=== PATIENT | female | born 1960 | race Caucasian/White ===

== ENCOUNTER 2017-01-17 05:23 | Inpatient (IN) ==
--- OUTSIDE RECORDS SUMMARY | 2017-01-17 05:28 | External Medical Summary | CCD ---
:1960 Author Name MECHELLE LOVELL Address [address], [place] [id number] Care Team Providers Name Role Phone RUDDY DUVAL Attending Physician Unavailable Vital Signs Unknown or Not Available. Allergies Unknown or Not Available. Procedures Unknown or Not Available. History of Immunizations Unknown or Not Available. Problems Unknown or Not Available. Results Unknown or Not Available. Active Medications Unknown or Not Available. Medications Administered During Visit Unknown or Not Available. Encounters Encounter Diagnosis Diagnosis Code Start Date JOINT PAIN-SHLDER 01937 03/11/2015 Social History Smoking Status Code Start Date End Date Never smoker [id number] Patient Decision Aids Unknown or Not Available. Discharge Instructions You were admitted to [facility] on 03/11/2015 with a principal diagnosis of JOINT PAIN-SHLDER. You were discharged from [facility] on 03/11/2015. Should you have any questions prior to discharge, please contact a member of your healthcare team. If you have left the hospital and have any questions, please contact your primary care physician. Chief Complaint and Reason For Visit Chief Complaint Date of Onset RT SHOULDER XRAY Function Status Unknown or Not Available. Plan of Care Unknown or Not Available. Referral/Transition of Care Unknown or Not Available.
--- OUTSIDE RECORDS SUMMARY | 2017-01-17 05:28 | External Medical Summary | Referral Summary ---
:1960 Author Organization [facility] Address [address] [place] [address] [place] [address] Care Team Providers Name Role Phone Jason Barlow Primary Care Physician Encounter VC Date(s): 08/09/16 - 08/09/16 [facility] [place] [phone] [place] Discharge Diagnosis: RLQ abdominal pain Discharge Diagnosis: Well woman exam Discharge Diagnosis: Hypothyroid Discharge Diagnosis: Atypical mole Discharge Disposition: 01-Home or Self Care Attending Physician: Jason Barlow MD Admitting Physician: Jason Barlow MD Vital Signs Most recent to oldest [Reference Range]: 1 Temperature Tympanic [36.6-38.1 degC] 35.9 degC *LOW* (08/09/16 8:12 AM) Peripheral Pulse Rate [60-100 bpm] 68 bpm (08/09/16 8:12 AM) Respiratory Rate [14-20 br/min] 18 br/min (08/09/16 8:12 AM) Blood Pressure [90-140/60-90 mmHg] 132/96mmHg (08/09/16 8:12 AM) Problem List Condition Effective Dates Status Health Status Informant Asthma(Confirmed) Active Goiter(Confirmed) Active Thyroid disease(Confirmed) Active Varicella zoster(Confirmed) Active Allergies, Adverse Reactions, Alerts No Known Medication Allergies Medications Afrin Nasal Sinus sprays, Nasal, BID, Nasal Congestion, 0 Refill(s) Start Date: 12/19/13 Status: Orderedcalcitriol 0.25 mcg oral capsule See Instructions, TAKE 2 CAPSULES BY MOUTH 2 TIMES DAILY, # 120 caps, 5 Refill(s ), eRx: [facility], TAKE 2 CAPSULES BY MOUTH 2 TIMES DAILY Start Date: 01/08/16 Status: OrderedCalcium 600+D tabs, Oral, TID, 0 Refill(s) Start Date: 12/19/13 Status: Orderedcyclobenzaprine 10 mg oral tablet 1 tabs, Oral, TID, as needed for spasm, # 30 tabs, 1 Refill(s), Pharmacy: [facility], 1 tabs Oral TID,PRN:as needed for spasm Start Date: 08/27/14 Status: Orderedibuprofen 200 mg oral tablet 2 tabs, Oral, q4hr, as needed for pain, # 120 tabs, 0 Refill(s) Start Date: 12/19/13 Status: Orderedomeprazole 20 mg oral delayed release capsule See Instructions, TAKE 1 CAPSULE BY MOUTH DAILY, # 30 caps, 4 Refill(s), eRx: [facility], TAKE 1 CAPSULE BY MOUTH DAILY Start Date: 04/18/14 Status: OrderedSynthroid 150 mcg (0.15 mg) oral tablet See Instructions, TAKE 1 TABLET BY MOUTH DAILY, # 60 tabs, 11 Refill(s), M[place], eRx: [facility], TAKE 1 TABLET BY MOUTH DAILY Start Date: 04/11/16 Status: Ordered Results Hematology Most recent to oldest [Reference Range]: 1 WBC [4.8-10.8 10*3/uL] 7.0 10*3/uL (08/09/16 8:55 AM) RBC [4.00-5.20] 4.79 (08/09/16 8:55 AM) Hgb [12.0-16.0 gm/dL] 13.9 gm/dL (08/09/16 8:55 AM) Hct [37.0-47.0 %] 43.7 % (08/09/16 8:55 AM) MCV [82.0-99.0 fL] 91.2 fL (08/09/16 8:55 AM) MCH [27.0-32.0 pg] 29.0 pg (08/09/16 8:55 AM) MCHC [32.0-36.0 gm/dL] 31.8 gm/dL *LOW* (08/09/16 8:55 AM) RDW [11.5-14.5 %] 13.3 % (08/09/16 8:55 AM) Platelet [150-400 10*3/uL] 249 10*3/uL (1/31/17 8:55 AM) MPV [8.8-14.8 fL] 11.0 fL (08/09/16 8:55 AM) Immature Granulocytes [0.0-1.0 %] 0.1 % (08/09/16 8:55 AM) Neutrophils [51-75 %] 66 % (08/09/16 8:55 AM) Lymphocytes [20-46 %] 24 % (08/09/16 8:55 AM) Monocytes [4-11 %] 6 % (08/09/16 8:55 AM) Eosinophils [0-4 %] 4 % (08/09/16 8:55 AM) Basophils [0-2 %] 0 % (08/09/16 8:55 AM) Neutro Absolute [1.90-7.00] 4.59 (08/09/16 8:55 AM) Lymph Absolute [0.80-3.30] 1.65 (08/09/16 8:55 AM) [place] Absolute [0.30-1.00] 0.43 (08/09/16 8:55 AM) Eos Absolute [0.00-0.50] 0.24 (08/09/16 8:55 AM) Baso Absolute [0.00-0.20] 0.03 (08/09/16 8:55 AM) Chemistry Most recent to oldest [Reference Range]: 1 Sodium Lvl [135-144 mEq/L] 141 mEq/L (08/09/16 8:55 AM) Potassium Lvl [3.5-5.2 mEq/L] 4.3 mEq/L (08/09/16 8:55 AM) Chloride [99-111 mEq/L] 105 mEq/L (08/09/16 8:55 AM) CO2 [22-31 mEq/L] 24 mEq/L (08/09/16 8:55 AM) AGAP [3-20] 12 (08/09/16 8:55 AM) BUN [10-20 mg/dL] 18 mg/dL (08/09/16 8:55 AM) Glucose Lvl [70-99 mg/dL] 97 mg/dL (08/09/16 8:55 AM) Creatinine Lvl [0.57-1.11 mg/dL] 0.82 mg/dL (08/09/16 8:55 AM) eGFR [>60 mL/min] >60 mL/min1 (08/09/16 8:55 AM) Calcium Lvl [8.9-10.5 mg/dL] 8.6 mg/dL *LOW* (08/09/16 8:55 AM) Albumin Lvl [3.5-5.0 gm/dL] 4.5 gm/dL (08/09/16 8:55 AM) Total Protein [6.1-7.7 gm/dL] 7.9 gm/dL *HI* (08/09/16 8:55 AM) Globulin [1.8-4.0 gm/dL] 3.4 gm/dL (08/09/16 8:55 AM) ALT [0-55 U/L] 23 U/L (08/09/16 8:55 AM) AST [5-34 U/L] 19 U/L (08/09/16 8:55 AM) Alk Phos [40-150 U/L] 75 U/L (08/09/16 8:55 AM) Bili Total [0.2-1.2 mg/dL] 0.6 mg/dL (08/09/16 8:55 AM) Chol [0-199 mg/dL] 241 mg/dL *HI* (08/09/16 8:55 AM) Trig [0-149 mg/dL] 190 mg/dL *HI* (08/09/16 8:55 AM) HDL [40-84 mg/dL] 44 mg/dL (08/09/16 8:55 AM) LDL [0-130 mg/dL] 159 mg/dL *HI* (08/09/16 8:55 AM) VLDL Cholesterol [0-28 mg/dL] 38 mg/dL *HI* (08/09/16 8:55 AM) Cardiac Risk [0.0-5.0] 5.5 *HI* (08/09/16 8:55 AM) 1Result Comment: Multiply eGFR results by 1.21 for race. Immunizations Given and Recorded Vaccine Date Status Refusal Reason tetanus/diphth/pertuss (Tdap) adult/adol 08/27/14 Given influenza virus vaccine, live 06/23/12 Given Procedures Procedure Date Related Diagnosis Body Site Collection of venous blood by venipuncture 08/09/16 section Thyroidectomy Social History Social History Type Response Smoking Status Never smoker Assessment and Plan Extracted from: Title:Office Visit Note Author:Jason Barlow MD Date:08/09/16 Assessment/Plan 1.Well woman exam Overall she appears healthy and doing well. I've recommended screening lab and that'll be done today. I recommended screening colonoscopy and paperwork was given for fast track. She is up-t o-date on vaccinations last tetanus was approximately 8 years ago. Pap smear obtained today. [facility] given for [facility] for scheduling mammogram. Yearly follow-up encouraged. Ordered: Comprehensive Metabolic Panel Lipid Panel Periodic Comp Preventive Med 40 to 64 years Est 00145 2.RLQ abdominal pain She did have some mild fullness but no real tenderness in the right lower quadrant onpelvic exam. I've recommended a pelvic sonogram for further evaluation. Ordered: CBC w/ Differential Comprehensive Metabolic Panel Periodic Comp Preventive Med 40 to 64 years Est 70615 US Pelvis Non-OB Complete 3.Hypothyroid Continue current dose of levothyroxine without change. Ordered: Comprehensive Metabolic Panel Lipid Panel Periodic Comp Preventive Med 40 to 64 years Est 97294 4.Atypical mole I think this most likely benign but since it's gotten darker of recommended a simple shave biopsy and will do that in the next few weeks some time
--- OUTSIDE RECORDS SUMMARY | 2017-01-17 05:28 | External Medical Summary | Continuity of Care Document ---
:1960 Author Organization [facility] Allergies Active Description Code Type Severity Reaction Onset Reported/ Identified Relationship Clinical to Patient Status Yes No Known 85857 3 N/A N/A Drug 0 Allergies Medications Problems Date Dx Coded Attending Type Code Diagnosis Diagnosed By 04/10/2015 QUINTEN JOHNSON [id number] PRIMARY OSTEOARTHRITIS, RIGHT SHOULDER 04/10/2015 QUINTEN JOHNSON [id number] PAIN IN RIGHT SHOULDER 04/10/2015 QUINTEN JOHNSON [id number] STRAIN OF MUSCLE(S) AND TENDON(S) OF THE ROTATOR CUFF OF RIGHT SHOULDER, INITIAL ENCOUNTER 04/10/2015 QUINTEN JOHNSON [id number] EXPOSURE TO OTHER SPECIFIED FACTORS, INITIAL ENCOUNTER 04/10/2015 QUINTEN JOHNSON Y[address] OF OCCURRENCE OF THE EXTERNAL CAUSE 04/10/2015 QUINTEN JOHNSON Y939 ACTIVITY, UNSPECIFIED Procedures Results Encounters ACCT No. Visit Discharge Status Pt. Type Provider Facility Loc./Unit Complaint Date/Time [id number] 04/10/2015 04/10/2015 DIS Outpatient Angel JOHNSON 12:30:00 12:30:00 [facility]
--- OUTSIDE RECORDS SUMMARY | 2017-01-17 05:28 | External Medical Summary | CCD ---
:1960 Author Name QUINTEN SWARTZ Address [address], [place] [id number] Care Team Providers Name Role Phone CRISTIANO ORTEGA Attending Physician Unavailable Vital Signs Unknown or Not Available. Allergies Unknown or Not Available. Procedures Unknown or Not Available. History of Immunizations Unknown or Not Available. Problems Unknown or Not Available. Results Unknown or Not Available. Active Medications Unknown or Not Available. Medications Administered During Visit Unknown or Not Available. Encounters Unknown or Not Available. Social History Smoking Status Code Start Date End Date Never smoker [id number] Patient Decision Aids Unknown or Not Available. Discharge Instructions You were admitted to [facility] on 04/24/2015. You were discharged from [facility] on 04/24/2015. Should you have any questions prior to discharge, please contact a member of your healthcare team. If you have left the hospital and have any questions, please contact your primary care physician. Chief Complaint and Reason For Visit Unknown or Not Available. Function Status Unknown or Not Available. Plan of Care Unknown or Not Available. Referral/Transition of Care Unknown or Not Available.
[2017-01-17 05:40] VITALS: BMI 31.9
[2017-01-17] MEDS: LR 1,000 ML IV SCH ×4 (06:15→22:42)
[2017-01-17] MEDS ORDERED: BUPIVACAINE 0.25% (2.5mg/ml) PF 30ml INJECTION ONE (06:20)
--- NOTE | 2017-01-17 07:27 | Anesthesia Preoperative Report ---
Anesthesia Preoperative Record - Date and Time Date: 01/17/17 Preoperative Diagnosis: Lap lt oopher/Lap jac salp/hysteroscopy/D&C Allergies/Adverse Reactions: Allergies Allergy/AdvReac Type Severity Reaction Status Date / Time No Known Allergies Allergy Verified 01/17/17 05:55 - Vital Signs Vital Signs: Temperature 97.9 F 01/17/17 05:31 Pulse Rate 58 L 01/17/17 05:31 Respiratory Rate 16 01/17/17 05:31 Blood Pressure 190/77 H 01/17/17 05:31 Pulse Oximetry 98 01/17/17 05:31 Oxygen Delivery Method Room Air Height and Weight: Height 1.6 m Weight 81.8 kg Body Mass Index 31.9 - Medications Inpatient Medications: Current Medications Lactated Ringer's (Lactated Ringers) 1,000 mls @ 125 mls/hr IV .Q8H SIMON Last Admin: 01/17/17 06:15 Dose: 125 mls/hr Lidocaine HCl (Xylocaine-Mpf 1% Vial) 1 mg ID O ONE Stop: 01/17/17 14:45 Last Admin: 01/17/17 06:16 Dose: 1 mg Home Medications: Home Medications Medication Instructions Recorded Confirmed Type Atorvastatin Calcium 10 mg PO DAILY 01/16/17 01/17/17 History Calcium 600 + D [Caltrate + D] 1 tab PO DAILY 01/16/17 01/17/17 History Hydrocodone/Acetaminophen 1 tab PO Q4-6HPRN PRN 01/16/17 01/17/17 History [Hydrocodon-Acetaminophen 5-325] Levothyroxine Tab [Synthroid] 150 mcg PO ACB 01/16/17 01/17/17 History Calcitriol [Rocaltrol] 2 cap PO DAILY 01/17/17 01/17/17 History - Surgical History Endocrine Surgery/Treatments: Reports: Parathyroid Surgery, Thyroidectomy Reproductive Surgery/Treatment: Reports: Section, Other (ectopic ; pelvic mesh X2) - Social History Smoking Status: Never smoker Hx Chewing Tobacco Use: No Second Hand Exposure: No Time spent discussing smoking cessation with patient: 3 to 10 minutes Substance Use Type: does not use Alcohol Intake Frequency: holidays/special occasions only - Pertinent Findings EKG Rhythm: Normal Sinus Rhythm - Physical Exam Respiratory Exam: Present: lungs clear, bilateral breath sounds equal Cardiovascular Exam: Present: regular rate and rhythm - Airway Assessment Mallampati Score: I TMD: 3 Fingerbreadths Neck Extension: good Overall Assessment: no airway concerns - ASA ASA Score: 1 - Plan Anesthesia: General Inhalation Gases - Discussion Discussion: Discussed risks/options/alternatives of anesthesia and questions answered. Patient consents. Nursing pain assessment noted. Present for Discussion: family member Attestation Statement: Prior to the delivery of any anesthetic medication, I examined the patient, developed the plan, obtained the patient's consent and discussed the risk and benefits of the procedure with the patient/guardian. - Additional Information Seen by Anesthesia: Yes
[2017-01-17] MEDS ORDERED: FentaNYL 250 MCG/5 ML INJECTION ONE ×2 (07:32→10:04)
[2017-01-17] MEDS ORDERED: ROCURONIUM 50 MG/5 ML INJECTION IVP ONE ×3 (07:33→11:05)
[2017-01-17] MEDS ORDERED: PROPOFOL 20 ML ONE (07:33)
[2017-01-17] MEDS ORDERED: LIDOCAINE 2% (100mg/5mL) PF 5ml vl ONE (07:33)
[2017-01-17] MEDS ORDERED: BUPIVACAINE 0.25% (2.5mg/ml) PF 30ml INJECTION ID ONE (07:56)
[2017-01-17] MEDS ORDERED: ONDANSETRON 4 MG/2 ML INJECTION ONE (08:03)
[2017-01-17] MEDS ORDERED: FentaNYL 100 MCG/2 ML INJECTION ONE (08:09)
[2017-01-17] MEDS ORDERED: METOPROLOL 5mg/5ml INJECTION IVP ONE (08:19)
[2017-01-17] MEDS ORDERED: DEXAMETHASONE 4 MG/ML INJECTION ONE (08:21)
[2017-01-17] MEDS ORDERED: HYDRALAZINE 20 MG/ML INJECTION ONE (08:35)
[2017-01-17] MEDS ORDERED: SALINE FLUSH 10ml SYRINGE ONE ×2 (08:37→09:35)
[2017-01-17] MEDS ORDERED: CEFAZOLIN 1 G INJECTION ONE (08:37)
[2017-01-17] MEDS ORDERED: ERTAPENEM 1 G in NS 100 ML IV ONE (09:07)
[2017-01-17] MEDS ORDERED: PHENYLEPHRINE INJ 10 MG/ML VIAL IV ONE (09:35)
[2017-01-17] MEDS ORDERED: SUGAMMADEX 200mg/2ml INJECTION IVP ONE (12:16)
[2017-01-17] MEDS ORDERED: PROCHLORPERAZINE 10 MG/2 ML INJECTION IVP PRN (12:41)
[2017-01-17] MEDS ORDERED: METOCLOPRAMIDE 10mg/2ml INJECTION IVP PRN ×2 (12:41→12:55)
[2017-01-17] MEDS ORDERED: HYDROMORPHONE PCA 30mg/30ml VIAL IV PRN (12:41)
--- NOTE | 2017-01-17 12:51 | OB/GYN Procedure Note ---
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 Guzman Anesthesia Provider: Santos Davidson MD Anesthesia Type: general Complications: Unavoidable Colostomy Estimated Blood Loss:: 200 Findings: Dense anterior abdominal wall adhesions and pelvic adhesions Description of Procedure: See dictation
[2017-01-17] MEDS: HYDROMORPHONE 2 MG/ML INJECTION IVP PRN ×2 (12:57→13:21)
--- NOTE | 2017-01-17 13:16 | General Surgery Procedure Note ---
Date of Procedure: 01/17/17 Surgeon: Megan President Of [place]: Other (Dr. Galeana) Anesthesia: General Inhalation Gases ASA Score: 1 Postoperative Diagnosis: Incidental colotomy secondary to adhesiolysis Procedure: Exploratory laparotomy with segmental sigmoid colon resection
--- NOTE | 2017-01-17 14:38 | Anesthesia Postoperative Note ---
- Status Patient Participated in Evaluation: Patient Participated in Person Vital Signs: Temperature 99.1 F 01/17/17 13:44 Pulse Rate 85 01/17/17 13:40 Respiratory Rate 21 01/17/17 13:40 Blood Pressure 133/64 01/17/17 13:40 Pulse Oximetry 95 01/17/17 13:40 Oxygen Delivery Method Room Air Oxygen Flow Rate 6 Respiratory Function: Airway Patent EKG Rhythm: Normal Sinus Rhythm Mental Status: Alert and Oriented Hydration: IV Infusing Complications During Recover: None Apparent Post Anesthesia Care Notes: doing well after additional analgesic and antiemetic. - Follow-Up Instructions Instructions: Per Surgeon
[2017-01-17] MEDS ORDERED: LIDOCAINE 1% (10mg/ml) 2mL INJ PF SDV ID ONE (14:44)
--- NOTE | 2017-01-17 17:36 | OB/GYN Progress Note ---
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 CBC in am, continue clear diet x 48 hours. Discussed case and complication of unavoidable Colotomy with patient. Discussed surgical findings and proceedings. Discussed post operative care. Questions elicited and answered.
[2017-01-17] MEDS ORDERED: ACETAMINOPHEN 325 MG TABLET PO PRN (23:01)
--- NOTE | 2017-01-18 06:19 | OB/GYN Progress Note ---
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 Use of IS. Rested well, no concerns Pt reports feeling much better from last evening, rested well. - Objective Vital Signs: Vital Signs Temp 99.0 F 01/18/17 04:36 Pulse 80 01/18/17 04:36 Resp 16 01/18/17 05:59 BP 126/67 01/18/17 04:36 Pulse Ox 95 01/18/17 04:36 Urine Output: good General: alert and oriented Cardiovascular: regular rate,rhythm Respiratory: non-labored Respiratory Auscultation: clear bilaterally Abdomen: non-tender, soft, distended Abdomen: Mild distention Incision: Dressing intact, appears dry Extremities: non-tender Laboratory Results: 01/18/17 04:07 Labs: Abnormal lab results 01/17/17 01/18/17 Range/Units 16:38 04:07 WBC 18.6 H 18.2 H (4.5-11.0) T/MM3 RBC 3.92 L (4.00-5.20) M/MM3 Hgb 11.8 L D (12-16) GM/DL Hct 35.8 L D (36-46) % Neutrophils % (Manual) 87.0 H (33-66) % Lymphocytes % (Manual) 6.0 L (23-45) % Neutrophils # (Manual) 15.8 H (1.8-7.7) T/MM3 - Assessment (1) Post-operative state Status: Acute - Plan Plan: continue Routine Care Plan Comments: 56 y/o F S/P Dx Laparoscopy converted to laparotomy secondary to unavoidable colotmy, Ovarian cyst aspiration, Bowels resection with reansastomosis, Hysteroscopy D&C Polypectomy. POD# - RPOC, encourage ambulation, Continue Clear Diet until at least 48 hours, Chadwick out today with ambulation -will guard against Illeus with ambulation, Chewing gum, and Clear diet - Pain control with GREASE AND TALLOW PUMPER continue until diet is advanced to softs then will attempt PO pain management - General surgery consulted Intraoperative, appreciate help Post operative fever- currently AF - resolved with One dose Tylenol, continue Tylenol PRN fever -IS at bed side - Second Dose IV ABX today Ivanz -Repeat CBC this am CBC improved, HGB stable Plan for today ambulation, Chadwick out, Pain control discussed with pt
[2017-01-18] MEDS: LR 1,000 ML IV SCH ×3 (06:44→23:58)
--- NOTE | 2017-01-18 08:01 | Operative Note ---
DATE OF SERVICE 01/17/2017 PREOPERATIVE DIAGNOSES 1. Left ovarian cyst. 2. Thickened endometrium. POSTOPERATIVE DIAGNOSES 1. Left ovarian cyst. 2. Endometrial polyp. 3. Abdominal and pelvic adhesions. 4. Unavoidable colotomy. Please see Dr. Guzman's dictation for remainder of postoperative diagnosis and procedures. PROCEDURE 1. Diagnostic laparoscopy. 2. Lysis of adhesions. 3. Unavoidable colotomy secondary to lysis of adhesions. 4. Hysteroscopy, D&C, endometrial polypectomy. SURGEON Heraclio Galeana, DO COMPLICATIONS Colotomy secondary to lysis of adhesions. ANESTHESIA PROVIDER Santos Suresh MD ANESTHESIA TYPE General. ESTIMATED BLOOD LOSS 200 ml FINDINGS Anterior abdominal wall adhesions along with pelvic adhesions. Normal- appearing uterus. Clear fluid aspirated from suspected ovarian cyst INDICATIONS FOR PROCEDURE This is a 56-year-old postmenopausal female who presented to the office with history of right lower quadrant pain and noted to have a left simple-appearing ovarian cyst greater than 5 cm with CA 125 within normal limits and an endometrial stripe greater than 4 mm on transvaginal sono. Discussion with patient in office of expectant versus surgical management for ovarian cyst in a postmenopausal patient with a simple-appearing cyst was discussed. Recommendations at that for diagnostic laparoscopy, oophorectomy, bilateral salpingectomy and hysteroscopy, D&C, possible polypectomy for a thickened endometrium was discussed along with risk, benefits and alternatives to procedure. Questions were elicited and answered in the office and patient agreed with surgical management. DESCRIPTION OF PROCEDURE The patient was taken to the operating room where general endotracheal anesthesia was obtained without difficulty. Bimanual exam of the pelvis revealed an anteverted, limited mobility uterus that was of normal size and shape with what appeared to be a pelvis mass in the posterior cul-de-sac on the patient's left side. A heavy-weighted speculum was placed in the posterior vagina and the Beyer was used to retract the anterior vagina and the cervix was visualized and grasped with a single-tooth tenaculum. The cervix and uterus was then sounded to 7 cm and the cervix was dilated with the Sharp dilator. The ClearView uterine manipulator was then inserted through the cervix into the uterus and surgeon was re-gloved and attention was turned to the abdomen. A 5 mm vertical incision was made at the umbilicus and the Veress was introduced into the abdomen and the abdomen was inflated with CO2 to 15 mmHg without difficulty. A 5 mm port was then placed at the infraumbilical site and the camera was then introduced into the abdomen. At this time a brief inspection of the abdomen and pelvis was performed noting anterior abdominal wall adhesions. The uterus could not be elevated up out of the pelvis and visualized and a decision was made to place a 5 mm port in the left lower quadrant of the abdomen under direct visualization. A 5 mm incision was made with a scalpel and the port was inserted under direct visualization without difficulty. A Pean laparoscopic grasper and hot scissor were used with minimal cautery to remove the anterior abdominal wall adhesions that contained sigmoid colon and omentum. This was carried down until the anterior-superior aspect of the uterus could be visualized and at this time continued with sharp dissection , minimal cautery and blunt dissection in attempt to remove adhesions and gain access to the left ovary was performed. During this time the unavoidable colotomy was noted and general surgery was called for intraoperative consult. Please see Dr. Guzman's dictation regarding the remainder of the abdominal case to include the bowel resection and reanastomoses to repair the unavoidable colotomy. Adhesiolysis was continued to be performed and the left ovarian cyst without being able to visualize the ovary had ruptured. The cyst wall could be visualized and two biopsies of the cyst wall were taken and sent to pathology. Excellent hemostasis was noted. After the abdominal procedure, the case was performed. Hysteroscopy was then started. Attention was turned below where the weighted speculum was then placed in the posterior vagina and the Robinson retractor was used to visualize the cervix which was grasped with a single- tooth tenaculum. The anterior retractor was removed and the hysteroscope was inserted through the cervix into the uterus without difficulty. Visualization of both ostia were performed and a clear view of the entire uterine cavity was seen noting, on the left side, two small uterine polyps, and the remainder of the endometrium appeared atrophic and thin. The hysteroscope was removed from the uterine cervix and the Jonathan stone forceps were used to perform polypectomy without difficulty. This tissue was sent to pathology and sharp curette was performed with minimal tissue. The hysteroscope part of the procedure was then precluded. All instruments were removed from the vagina and excellent hemostasis was noted. The patient was then taken to recovery room in stable condition. ISHAAN
--- NOTE | 2017-01-18 08:59 | Operative Note ---
DATE OF OPERATION 01/17/2017 SURGEON Ellis Guzman MD CAFETERIA ASSOCIATE Heraclio Galeana, DO PREOPERATIVE DIAGNOSIS Enterotomy incidental to adhesiolysis. POSTOPERATIVE DIAGNOSES 1. Colotomy incidental to adhesiolysis. 2. Dense pelvic adhesions. PROCEDURE 1. Diagnostic laparoscopy. 2. Exploratory laparotomy. 3. Adhesiolysis within the pelvis. 4. Segmental sigmoid colon resection with [id number] functional end-to-end anastomosis. ANESTHESIA General ASA CLASS 1 INDICATIONS The patient is a 56-year-old female who was undergoing diagnostic laparoscopy by Dr. Galeana. I was called to the operating room when an enterotomy was noted based on spillage of stool within the left pelvis. FINDINGS There were dense pelvic adhesions to the posterior aspect of the uterus and also to the left ovary which did have a cyst with yellow serous fluid. The cyst had ruptured during dissection of the dense adhesiolysis. The sigmoid colon was very redundant with a lengthy segment of the sigmoid colon that reflected back on itself prior to entering the pelvis. There were interloop adhesions holding the sigmoid colon segments in close proximity to each other. There was a colotomy that encompassed approximately half the circumference of the bowel in the proximal aspect of the redundant portion of the sigmoid colon. This was about at the junction of the proximal third and middle third of the sigmoid colon. See Dr. Galeana's separate operative note for additional details. Greater than 120 minutes of adhesiolysis was performed to try to dissect out the anterior rectum and the sigmoid colon loops to perform adequate repair via sigmoid colon resection. DESCRIPTION OF PROCEDURE I was called to the operating room where operation was already under way. At the point of my entry, laparoscopic ports were in the infraumbilical, suprapubic , and left lower quadrant locations. With the laparoscope, Dr. Galeana showed me the stool which was outside of the GI tract in the left lower quadrant. I ordered a gram of Invanz to be given IV. I then scrubbed in to the case and inspected the area with the laparoscope. The colotomy could then be identified. However with the dense pelvic adhesions that were present on laparoscopy, it was felt that laparotomy would be required to adequately deal with the situation. With pneumoperitoneum still established, a lower midline incision was created with a 10 blade scalpel. Electrocautery was used to dissect down to the subcutaneous tissue. The fascia was divided over one of the plastic trocars in the infraumbilical position. A finger was then inserted and was used to continue the fascial incision down to just above the pubic symphysis. Some adhesiolysis was performed of the omentum to the anterior abdominal wall so that an Herson wound protector could be inserted. A Bookwalter retractor was also used for retraction. With the retraction in place , attention was turned to the area of the enterotomy. Stool was milked out of the colon both proximal and distal to the enterotomy. As additional stool was noticed during the case it was evacuated and passed off of the surgical field within laparotomy sponges. Once the area was identified, attention was turned to adhesiolysis to free up the remainder of the anterior portion of the sigmoid colon. Dissection was performed down into the pelvis and around the left ovarian cyst. Small opening was made in the wall of the cyst during the dissection. Areas that were away from the bowel were able to be cauterized with electrocautery. Significant blunt dissection was performed wherever possible but due to the dense nature of the adhesions, some sharp dissection with Metzenbaum scissors was required. When the distal sigmoid colon and proximal rectum had been dissected off of the posterior aspect of the uterus, Dr. Galeana performed a biopsy of the cyst wall. With the biopsy complete, I returned attention to adhesiolysis of the interloop adhesions of the sigmoid colon and its mesentery. This allowed straightening of the sigmoid colon. There were aspects of the mesentery which were adherent to each other over the top of the antimesenteric portion of the bowel in some locations. The bowel was able to be freed adequately. The redundant portion extended well beyond the anterior abdominal wall. It was felt that this configuration would make future endoscopies very difficult and that closure of the defect in a transverse fashion would risk narrowing the sigmoid colon leading to a potential stricture. Because of the redundant nature of the sigmoid colon, it was felt that the best solution would be a segmental sigmoid colon resection. A window was made in the mesentery just proximal to the colotomy. The bowel was divided with a linear cutting stapler. The site for distal transection was selected in the distal aspect of the middle third of the sigmoid colon to try to maintain adequate length as well as connect a segment that was free of mesenteric adhesions over the bowel. This allowed good position of the anastomosis in the left lower quadrant without tension. With this site selected , another window was made in the mesentery and the more distal resection margin was divided with a reload of the linear cutting stapler. At this point in time , the pelvis was inspected for hemostasis. There were some small areas of bleeding that were controlled with cautery. There was also some bleeding from the edge of the cyst biopsy site and this was controlled with an 0 Vicryl tie. The left ureter had been identified and was preserved throughout the pelvic dissection. This was again assured. Additional significant irrigation was utilized to irrigate out the pelvis and left lower quadrant because of the contamination. Once the fluid was evacuated and hemostasis was assured along the pelvic sidewall, the mesentery of the specimen was divided between clamps and controlled with 0 Vicryl ties. The specimen was then sent to pathology. Hemostasis was again assured and additional irrigation was performed. The area of anastomosis was wrapped with blue towels. The corners of the antimesenteric portions of the staple line were removed and one limb of the TLC75 stapler was placed in each bowel lumen. The bowel was then positioned so that the antimesenteric portions of the bowel were on opposite aspects and the mesentery was rotated out of the staple line. The stapler was then fired to create the common channel. The common enterotomy was then closed using a [id number] stapler. The four corners of the common enterotomy where the staple lines were, were grasped with Allis clamps to be sure that full-thickness closure of the common enterotomy was achieved. The anastomosis was palpated and was found to be adequate. Two 3-0 Vicryl sutures were used at the apex of the common staple line to prevent un-zippering of the staple lines at the crotch of the anastomosis. With the anastomosis complete, it was allowed to return within the abdomen. The greater omentum was pulled down as much as possible beneath the incision. The Bookwalter retractor was removed. With a clean glove, I removed the wound protector. The entire surgical team then changed gown and gloves and new sterile instruments were utilized for wound closure. The fascia was closed with a running #1 PDS suture. Hemostasis of the subcutaneous layer was assured. The skin was closed with nick but a buried 4-0 Monocryl stitch was used to close the incision site that was oriented transversely at the bottom aspect of the incision. One other portion at the upper incision that was poorly everted was also reapproximated with a buried interrupted 4-0 Monocryl stitch. The port in the left lower quadrant that had been removed was also closed with nick. Sterile dressings were applied. The patient tolerated this portion of the procedure well. She remained in the operating room for additional procedures by Dr. Galeana. ISHAAN
[2017-01-18] MEDS ORDERED: ERTAPENEM 1 G INJECTION IM SCH (09:00)
[2017-01-18] MEDS: ERTAPENEM 1 G in NS 100 ML IV SCH (09:34)
[2017-01-19] MEDS: LR 1,000 ML IV SCH ×2 (08:11→17:27)
[2017-01-19] MEDS: ERTAPENEM 1 G in NS 100 ML IV SCH (08:55)
--- NOTE | 2017-01-19 09:17 | OB/GYN Progress Note ---
YARN TESTER Post Op Progress Note - General POD:: POD2 Pain: contolled Voiding: voiding Nausea or Vomiting: No Ambulating: Yes Subjective Comments: Dis well over night, ambulating, chadwick out positive voids, pain controlled with HEATING AND COOLING TECHNICIAN, Using IS, Chewing Gum, slept well, Up to chair this am. No concerns per nursing. - Objective Vital Signs: Vital Signs Temp 98.2 F 01/19/17 07:34 Pulse 83 01/19/17 07:34 Resp 16 01/19/17 07:40 BP 131/70 01/19/17 07:34 Pulse Ox 96 01/19/17 07:34 Urine Output: good General: alert and oriented Cardiovascular: regular rate,rhythm Respiratory: non-labored Respiratory Auscultation: clear bilaterally Abdomen: non-tender, soft, distended Abdomen: Positive Bowel sounds q 4 quadrants, Mild distention soft Incision: Dressing C/D/I Extremities: non-tender Laboratory Results: 01/18/17 04:07 - Assessment (1) Post-operative state Status: Acute - Plan Plan: continue Routine Care Plan Comments: 56 y/o Female S/P DX laparoscopy, LENKA, converted to open secondary to colotomy, bowel resection and reanastomosis, Hysteroscopy D&C, Polypectomy Doing well, Pain controlled, Asad clear diet, AF. - RPOC -Will discuss with Gen surg and possible advance to Soft diet, if advance to soft diet will start PO pain management and Home meds. -Continue in pt manaagement
[2017-01-19] MEDS ORDERED: Oxycodone/Acetaminophen 5/325 1 TAB PO PRN (12:09)
[2017-01-19] MEDS: CALCITRIOL 0.25 MCG CAPSULE PO SCH ×3 (13:44→20:17)
[2017-01-19] MEDS: CALCIUM 600 + VIT D 400 TABLET PO SCH ×3 (13:44→20:18)
[2017-01-19] MEDS: LEVOTHYROXINE 150 MCG TABLET PO SCH (13:44)
[2017-01-19] MEDS: HYDROCODONE/APAP 5mg/325mg TABLET PO PRN ×2 (13:49→19:53)
[2017-01-19] MEDS: IBUPROFEN 800 MG TABLET PO PRN (16:38)
--- NOTE | 2017-01-19 18:46 | Progress Note ---
DATE OF VISIT 01/18/2017 REASON FOR VISIT Postoperative followup. SUBJECTIVE Mary is doing well. She has been ambulating some and has had her Li discontinued. She has some pain in her incision but overall feels like she is making appropriate progress. OBJECTIVE VITAL SIGNS: Temperature 99.5, other vital signs stable on room air. GENERAL: The patient is awake and alert, in no acute distress. She is seated upright in the chair. ABDOMEN: Soft, appropriately tender. Her dressing is clean, dry and intact. ASSESSMENT Postop day #1 status post exploratory laparotomy with segmental sigmoid colon resection - appropriate clinical progress. PLAN 1. Agree with continuation of clear liquid diet for now. 2. I encouraged her to increase her ambulation to help prevent postoperative ileus and muscle loss. 3. IV antibiotics can be stopped after this morning's dose. 4. I will continue to follow along with you. I will check her incision tomorrow. PATIENT EDUCATION I did explain the clinical situation to Mary and her who was present. I did explain that she would likely be in the hospital for three to five days while we await bowel function return. 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 She may need to go back half-time initially when she is feeling up to it. I did explain that we would slowly advance her diet and monitor for evidence of anastomotic leak or abscess formation by watching for fever, leukocytosis, or increasing pain rather than decreasing pain. Their questions were answered to their satisfaction. ISHAAN
--- NOTE | 2017-01-19 19:08 | Progress Note ---
DATE OF VISIT 01/19/2017 REASON FOR VISIT Postoperative followup. SUBJECTIVE Mary is doing well. She has been tolerating her oral intake without problems. She has been ambulating. Pain control has been adequate without the SENIOR RISK ANALYST and she prefers oral pain medicine. OBJECTIVE VITAL SIGNS: Temperature 97.9, vital signs stable. ABDOMEN: Her lower midline incision is healing well with minimal drainage and no evidence of infection. Her incision is intact as well as the small port site in the left lower quadrant. ASSESSMENT Postop day #2 status post exploratory laparotomy with segmental sigmoid colon resection - appropriate clinical progress. PLAN 1. Continue with slow diet advance. 2. If the patient has passed flatus or a bowel movement tomorrow, I think her diet could be advanced additionally. 3. I will DC her SENIOR RISK ANALYST since she does not want to use it. 4. Nurses may change her bandage as needed at this point. 5. I will allow her to shower and will start with Hibiclens soap. 6. I encouraged her to back off of oral intake if she developed nausea or vomiting. 7. Discontinue Invanz. There had been confusion with order picker and Invanz was continued through doses today. MTDD
[2017-01-20] MEDS: IBUPROFEN 800 MG TABLET PO PRN ×3 (00:24→15:36)
[2017-01-20] MEDS: LR 1,000 ML IV SCH ×2 (02:10→11:05)
[2017-01-20] MEDS: LEVOTHYROXINE 150 MCG TABLET PO SCH (06:16)
--- NOTE | 2017-01-20 07:05 | OB/GYN Progress Note ---
SALES PROJECT COORDINATOR Post Op Progress Note - General POD:: POD3 Pain: contolled Voiding: voiding Nausea or Vomiting: No Ambulating: Yes Subjective Comments: Dis well over night, ambulating, chadwick out positive voids, pain controlled with SEO CONSULTANT, Using IS, Chewing Gum, slept well, Up to chair this am. No concerns per nursing. - Objective Vital Signs: Vital Signs Temp 96.6 F L 01/20/17 04:00 Pulse 66 01/20/17 04:00 Resp 16 01/20/17 04:00 BP 135/70 01/20/17 04:00 Pulse Ox 97 01/20/17 04:00 Urine Output: good General: alert and oriented Cardiovascular: regular rate,rhythm Respiratory: non-labored Respiratory Auscultation: clear bilaterally Abdomen: non-tender, soft, distended Incision: Dressing D/C/I Extremities: non-tender Edema: none Laboratory Results: 01/18/17 04:07 Labs: Path reviewed, Edometrial curretings negative for hyperplasia or malignancy, Polyp negative for hyperplasia or malignancy, Benign cyst wall C/W serous cystadenoma. - Assessment (1) Post-operative state Status: Acute - Plan Plan: continue Routine Care Plan Comments: Continue with Full liquid diet for now, Continue with RPOC
[2017-01-20] MEDS: SALINE FLUSH 10ml SYRINGE IV PRN ×2 (11:06→14:42)
[2017-01-20] MEDS ORDERED: DOCUSATE SODIUM 100 MG CAPSULE PO SCH (12:30)
[2017-01-20] MEDS: DOCUSATE SODIUM 100 MG CAPSULE PO SCH (21:16)
[2017-01-20] MEDS ORDERED: CALCIUM 600 + VIT D 400 TABLET PO SCH (22:00)
[2017-01-20] MEDS ORDERED: CALCITRIOL 0.25 MCG CAPSULE PO SCH (22:00)
[2017-01-21] MEDS: LEVOTHYROXINE 150 MCG TABLET PO SCH (06:18)
[2017-01-21 07:25] VITALS: O2SAT 97
[2017-01-21] MEDS: IBUPROFEN 800 MG TABLET PO PRN (07:28)
[2017-01-21] MEDS: DOCUSATE SODIUM 100 MG CAPSULE PO SCH ×2 (07:29→08:42)
--- NOTE | 2017-01-21 09:39 | Progress Note ---
DATE OF VISIT 01/20/2017 REASON FOR VISIT Postop followup. SUBJECTIVE Mary is doing well. She feels like she has had some great improvements lately. She has passed some flatus but has not had a bowel movement yet. She has been tolerating oral intake with full liquids well. She has only been using Motrin which has been treatment for a tension headache, but this has also covered her abdominal pain. OBJECTIVE VITAL SIGNS: Afebrile with stable vitals on room air. GENERAL: The patient is awake and alert, in no acute distress. ABDOMEN: Soft, appropriately tender. Dressing remains intact. ASSESSMENT Postop day #3 status post exploratory laparotomy with segmental sigmoid colon resection-- improving as expected. PLAN 1. I will discontinue her IV fluids since she has been tolerating full liquids well. 2. I will add Colace twice daily. The patient requested not to start with laxatives currently. 3. I will advance her to a regular diet for dinner. 4. I do not think she is quite ready for dismissal but hopefully as there is evidence of bowel function she will be ready to be dismissed soon. ISHAAN
--- NOTE | 2017-01-21 10:19 | Discharge Instructions ---
Discharge Plan - [facility] Instructions: Laparoscopic Oophorectomy (DC), Laparoscopic Hysterectomy (DC) Prescriptions: New Hydrocodone/APAP 5/325 [[place] 5/325] 1 - 2 tab PO Q4H PRN #30 tablet PRN Reason: Pain Ibuprofen [Motrin] 800 mg PO Q8H PRN #40 tablet PRN Reason: Pain Docusate Sodium [Colace] 100 mg PO BID #30 capsule Continue Calcium 600 + D [Caltrate + D] 1 tab PO NOON Levothyroxine Tab [Synthroid] 150 mcg PO ACB No Action Atorvastatin Calcium 10 mg PO HS Calcitriol [Rocaltrol] 2 cap PO NOON Hydrocodone/Acetaminophen [Hydrocodon-Acetaminophen 5-325] 1 tab PO Q4-6HPRN PRN PRN Reason: Pain Discharge Instructions/Outpatient Orders: Final Provider Discharge Instructions Location: Determined By Patient - Disposition 01 Discharged Home, Self-Care
[2017-01-21 11:29] VITALS: BP 124/65; PULSE 76; RESP 18; TEMP 97.6
--- NOTE | 2017-01-21 19:42 | Progress Note ---
DATE OF VISIT 01/21/2017 REASON FOR VISIT Postoperative followup. SUBJECTIVE Mary is doing very well. She has tolerated a regular diet. She has had some bowel movements and is passing flatus well. She feels like she is ready to go home. OBJECTIVE ABDOMEN: Soft, appropriately tender. Her incision is clean, dry, and intact as well as the left lower quadrant incision. ASSESSMENT Postop day #4 status post exploratory laparotomy with segmental sigmoid colon resection--ready for discharge. PLAN See discharge instructions. The patient's questions were answered regarding postoperative care. ISHAAN
--- NOTE | 2017-04-14 13:12 | Discharge Summary ---
DC Information/Hospital Course Date of admission: 01/17/17 11:14 Attending Physician: Heraclio Galeana DO Primary care physician: Jason Barlow MD (1) Post-operative state Status: Acute - Hospital Course Procedures Operation Date: 01/17/17 07:30 Actual Procedures p Laparoscopy Diagnostic Diagnostic Laparoscopy, lysis of adhesions w/ unavoidable enterotomy, aspiration of ovarian cyst, biopsy of ovarian cyst; Exploratory Laparotomy, Segmental Sigmoid Colon Resection - Heraclio Galeana DO s Hysteroscopy hysteroscopy d&c, polypectomy - Heraclio Galeana DO MACHINE TOOL DRESSER Exam Vital signs: Temperature 97.6 F 01/21/17 11:28 Pulse Rate 76 01/21/17 11:28 Respiratory Rate 18 01/21/17 11:28 Blood Pressure 124/65 01/21/17 11:28 Pulse Oximetry 97 01/21/17 11:28 Discharge Plan - [facility] Rec/Dispo [place] Instructions: Laparoscopic Oophorectomy (DC), Laparoscopic Hysterectomy (DC) Prescriptions: New Hydrocodone/APAP 5/325 [[place] 5/325] 1 - 2 tab PO Q4H PRN #30 tablet PRN Reason: Pain Ibuprofen [Motrin] 800 mg PO Q8H PRN #40 tablet PRN Reason: Pain Docusate Sodium [Colace] 100 mg PO BID #30 capsule Continue Calcium 600 + D [Caltrate + D] 1 tab PO NOON Levothyroxine Tab [Synthroid] 150 mcg PO ACB No Action Atorvastatin Calcium 10 mg PO HS Calcitriol [Rocaltrol] 2 cap PO NOON Hydrocodone/Acetaminophen [Hydrocodon-Acetaminophen 5-325] 1 tab PO Q4-6HPRN PRN PRN Reason: Pain Discharge Instructions/Outpatient Orders: Final Provider Discharge Instructions Location: Determined By Patient - Disposition 01 Discharged Home, Self-Care
--- NOTE | 2017-04-14 16:03 | Discharge Summary ---
Admission Date 01/18/2017 Discharge Date 01/21/2017 ATTENDING PHYSICIAN Heraclio Galeana DO PRIMARY CARE PHYSICIAN Heraclio Galeana, CONSULTATIONS Ellis Guzman MD, general surgeon Condition at discharge: Good Admission Diagnosis 1)Adnexal mass 2)Thickened Endometrium DISCHARGE DIAGNOSIS/PROCEDURES 1. Status post diagnostic laparoscopy. 2. Exploratory laparotomy. 3. Partial resection and reanastomosis of unavoidable colotomy and pelvic adhesions. 4. Aspiration of ovarian cyst with biopsy of ovarian cyst, hysteroscopy, D&C. History of present illness- Please refer to Admission H&P IMAGING STUDIES None HOSPITAL COURSE This is a 56-year-old female who was admitted for outpatient surgery secondary to a right ovarian cyst and postmenopausal bleeding. A hysteroscopy D&C was performed without difficulty and the diagnostic laparoscopy was performed and significant abdominal adhesions were noted. An unavoidable colotomy was performed and general surgery was consulted and a laparotomy was performed with resection of partial colon and reanastomosis occurring on postop day #0. Patient did well, continued to improve. Patient continued to improve throughout the remainder of the hospital course and was discharged on postop day #4. EXAM ON DISCHARGE DAY Patient was alert and oriented x3, was in no acute distress. She had no extremity edema or tenderness. Abdomen was soft, nondistended, moderately tender. Incision was clean, dry and intact. She had normal lung sounds and regular rate and rhythm. Vital signs were stable. Discharge Medications Hydrocodone, ibuprofen and bowel regimen. She was to continue her home medications of Atorvastatin and Calcitrol, levothyroxine, ibuprofen, calcium. Discharge Instructions- See Patient education Follow Up Apt- @ week incision check and 6 weeks post operative visit with Dr. Galeana, [address] Guzman Code Status- Full MTDD
== END 2017-01-21 12:06 | disposition home or self-care (01) | DRG 908 ==
LOC: SUR 05:23 → SRG 05:23
PROVIDERS: ADMIT Obstetrics & Gynecology; ATTEND Obstetrics & Gynecology